=== PATIENT | female | born 1965 | race Caucasian/White ===

== ENCOUNTER → 2016-12-29 | Outpatient (CLI) | payer MEDICARE ==
--- NOTE | ~2016-12-29 | US85 ---
[facility] A Service of [facility] RADIOLOGY TEXT RESULTS PATIENT: CHELSI STEEN LOCATION: CNIV : 61 UNIT #: [id number] AGE: [address]: Derek Gruber MD SEX: F ORDER DR: [id number] [facility] [address] [place], [place] [address] [id number] O MR#: [id number] Acc #: [id number] NAME: CHELSI STEEN : 1965 SEX: F STUDY DATE/TIME: 12/29/2016 12:58 UNIT: CNIV ROOM: STUDY DESCRIPTION: [facility] Attending Physician: Erin Gruber M.D. Referring Physician: Erin Gruber M.D. Ordering Physician: Erin Gruber M.D. Primary Care Physician: Erin Gruber M.D. MEDICAL IMAGING REPORT This report is preliminary unless electronic signature is present EXAM Left lower extremity venous duplex 12/29/2016. HISTORY Left lower extremity pain and swelling in left calf for 2 weeks with no known injury. Evaluate for deep vein thrombosis. TECHNIQUE Venous ultrasound examination of the left lower extremity was performed using grayscale, spectral Doppler and color flow Doppler imaging. FINDINGS The examination is negative. There is no evidence of left lower extremity deep venous thrombus from the groin to the lower calf. Visualized greater saphenous vein is also patent. IMPRESSION Negative examination. No evidence of left lower extremity deep venous thrombosis. Dictated by... Zuhair Mckinley M.D. THIS IS AN ELECTRONICALLY VERIFIED REPORT Zuhair Mckinley M.D. at 12/30/2016 8:07 AM KRYSTAL/rashawn TD: 12/29/2016 14:16 JOB #: [id number] MEDICAL IMAGING REPORT Page 1 of 1 COPY
== END | disposition home or self-care (01) ==
LOC: CNIV 12:30
DX: M79.89 Other specified soft tissue disorders (principal); M79.662 Pain in left lower leg
CPT/HCPCS: 93971